=== PATIENT | female | born 1990 | race Caucasian/White ===

== ENCOUNTER 2022-02-17 17:40 | Outpatient (NON) | payer OTHER, MEDICAID, SELFPAY | END 2022-02-17 17:41 | disposition home or self-care (01) | LOC: ANHLAB 17:44 | PROVIDERS: PCP Internal Medicine; Visit Provider Nurse Practitioner | DX: L02.212 Cutaneous abscess of back [any part, except buttock and flank] (principal) | CPT/HCPCS: 87070; 87075; 87076; 87205 ==